=== PATIENT | female | born 1985 | race Caucasian/White ===

== ENCOUNTER 2017-08-23 06:22 | Observation (INO) ==
[2017-08-23] MEDS ORDERED: Ondansetron 4 MG/2 ML VIAL IVP ONE (06:46)
[2017-08-23] MEDS ORDERED: 0.9 % Sodium Chloride 1,000 ML IVC ONE ×2 (06:46→08:10)
[2017-08-23] MEDS ORDERED: Ketorolac 30 MG/ML VIAL IVP ONE (06:46)
--- NOTE | 2017-08-23 06:52 | Emergency Department Note ---
Disposition Clinical Impression: Intractable abdominal pain, Kidney stone Disposition: Admitted As Inpatient Condition: Fair General Adult HPI - General Chief complaint: ED Abdominal Pain Stated complaint: left flank pain Time Seen by Provider: 08/23/17 06:32 Source: patient Mode of arrival: ambulatory Limitations: no limitations Nursing Notes Reviewed: Yes Vital Signs Reviewed: Yes - History of Present Illness HPI Narrative: 31 year old female with history of kidney stone presents with left flank pain. Pt reported sudden sharp pain which woke her up around 2 am this morning (4 hours ago). It associated with some nausea and dysuria. No vomiting. No hematuria. Pt reported mild decreasing urine out put since yesterday. Pt had abdomen CT on 08/02 which indicated a 4mm stone in left distal ureteral. Pt was discharged home with Flomax. Pt denied chill and fever. History of cholecystectomy. Onset (ago): hour(s) (4) Location: abdomen, left Radiation: flank Pain Severity: severe Pain Scale: 10 Quality: sharp Consistency: constant - Related Data Home Medications Medication Instructions Recorded Confirmed Ibuprofen [Ibuprofen] 800 mg PO Q8H PRN 08/23/17 08/23/17 Allergies Allergy/AdvReac Type Severity Reaction Status Date / Time acetaminophen [From Vicodin] AdvReac Vomiting Verified 08/02/17 09:44 hydrocodone [From Vicodin] AdvReac Vomiting Verified 08/02/17 09:44 Constitutional: Denies: fever, chills, weakness Eyes: Denies: eye pain, eye discharge, vision change ENT ED: Denies: ear pain, throat pain, dental pain Cardiovascular: Denies: chest pain, palpitations, dyspnea on exertion Respiratory: Denies: cough, dyspnea, wheezes Gastrointestinal: Reports: abdominal pain, nausea. Denies: vomiting, diarrhea Genitourinary: Denies: urgency, dysuria, frequency, hematuria Musculoskeletal: Denies: back pain, neck pain, joint swelling Integumentary: Denies: rash, abrasion, lesions, change in hair/nails Neurological: Denies: headache, weakness, numbness Psychiatric: Denies: anxiety, depression, suicidal thoughts Endocrine: Denies: fatigue, heat or cold intolerance Hematological/Lymphatic: Denies: easy bleeding, easy bruising Allergic/Immunologic: Denies: facial swelling, urticaria, itchy eyes Past Medical History - Past Medical History Medical history: Reports: no medical history Surgical history: Reports: cholecystectomy Psychiatric history: Reports: no psych history 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 Absent: scleral icterus, conjunctival injection - ENT ENT exam: normal exam - Neck Neck exam: Present: normal inspection, full ROM, trachea midline. Absent: tenderness - Chest Chest inspection: Present: normal inspection, symmetric chest wall rise. Absent : tenderness - Respiratory Respiratory exam: Present: normal lung sounds bilaterally. Absent: respiratory distress, wheezes - Cardiovascular Cardiovascular exam: Present: regular rate, normal rhythm - Abdominal Exam Abdominal exam: Present: soft, tenderness Abdominal tenderness: Present: LUQ - Extremities Exam Extremities exam: Present: normal inspection, full ROM. Absent: tenderness - Back Exam Back exam: Present: normal inspection, full ROM, CVA tenderness (L) - Neurological Exam Neurological exam: Present: alert, oriented X3 - Psychiatric Psychiatric exam: Present: normal affect, normal mood - Skin Skin exam: Present: warm, dry, intact Course Vital Signs Temperature 97.9 F 08/23/17 06:25 Pulse Rate 89 08/23/17 06:25 Respiratory Rate 20 08/23/17 06:25 Blood Pressure 131/94 08/23/17 06:25 O2 Sat by Pulse Oximetry 100 08/23/17 06:25 Temperature 97.8 F 08/23/17 13:11 Pulse Rate 74 08/23/17 13:11 Respiratory Rate 15 08/23/17 13:11 Blood Pressure 121/78 08/23/17 13:11 O2 Sat by Pulse Oximetry 96 08/23/17 13:11 Oxygen Delivery Oxygen Delivery Room Air Medical Decision Making - [facility] Narrative Medical decision making narrative: 31 year old female with history of kidney stone presents with sudden onset left flank pain associate with nausea, dysuria and mild decreasing urine out put since last night. Physical exam indicated LUQ tender and left CVA tender. Impression: flank pain (colic pain VS. abdominal pain), will order labs and UA. symptoms control and hydration. Pt reported intractable pain with toradol and oxycodone. Abd ct ordered. 11:00 CT report : 5mm stone on left UVJ, moderate obstruction, Urology paged 11:10 spoke to Urology James Martin, admit pt to Urology service, NPO now. - Lab Data Lab results reviewed: Yes I reviewed the patient's lab results. Result diagrams: 08/23/17 06:48 08/23/17 06:48 Lab Results 08/23/17 08/23/17 08/23/17 Range/Units 06:41 06:41 06:48 WBC 13.0 H (4.3-11.1) K/mcL RBC 4.82 (3.82-4.97) M/mcL Hgb 14.7 (11.5-15.4) g/dL Hct 43.8 (35.3-44.9) % MCV 90.9 (83.0-100.0) fL MCH 30.5 (28.0-33.3) pg MCHC 33.6 (31.6-35.5) g/dL RDW 12.3 (11.5-14.5) % Plt Count 220 (140-400) K/mcL MPV 13.3 H (9.4-12.4) fL Immature Gran % 0.3 (0-4) % Seg Neutrophils % 68.0 % Lymphocytes % 20.5 % Monocytes % 6.8 % Eosinophils % 3.9 % Basophils % 0.5 % Neutrophils # 8.8 (1.6-8.9) K/mcL Lymphocytes # 2.7 (0.6-4.6) K/mcL Monocytes # 0.9 (0.0-1.3) K/mcL Eosinophils # 0.5 (0.0-0.6) K/mcL Basophils # 0.1 (0.0-0.2) K/mcL Sodium (136-145) mEq/L Potassium (3.5-5.1) mEq/L Chloride (98-107) mEq/L Carbon Dioxide (23-29) mEq/L BUN (6-20) mg/dL Creatinine (0.60-1.20) mg/dL Est GFR ( Amer) (> 60) Est GFR (Non-Af Amer) (> 60) BUN/Creatinine Ratio (6-26) Glucose (70-105) mg/dL Calculated Osmolality (280-300) Calcium (8.6-10.3) mg/dL Total Bilirubin (0.3-1.0) mg/dL AST (13-39) Units/L ALT (7-52) Units/L Alkaline Phosphatase (34-104) Units/L Serum Total Protein (6.4-8.9) g/dL Albumin (3.5-5.7) g/dL Globulin (2.4-3.5) g/dL Albumin/Globulin Ratio (1.1-2.2) Lipase (11-82) Units/L Urine Color Dark Yellow (Yellow) Urine Clarity Cloudy A (Clear) Urine pH 5.5 (5.0-8.0) pH Units Ur Specific [place] 1.028 H (1.010-1.025) Urine Protein Trace (Neg-Trace) mg/dL Urine Glucose (UA) Normal (Normal) mg/dL Urine Ketones Negative (Negative) mg/dL Urine Blood Large H (Negative) Urine Nitrite Negative (Negative) Urine Bilirubin Small H (Negative) Urine Urobilinogen Normal (Normal) mg/dL Ur Leukocyte Esterase Negative (Negative) Urine Microscopic RBC TNTC H (0-3) per hpf Urine Microscopic WBC 5-15 H (0-3) per hpf Ur Squamous Epith Cells Many H (None-Few) per lpf Urine Bacteria Many H (None-Few) per hpf Hyaline Casts None Seen (None-Few) per lpf Ur Culture Indicated? NO (NO) Urine Test (Negative) Urine Opiates Screen Negative (Uyzcne=559) ng/mL Ur Barbiturates Screen Negative (Vscfxd=808) ng/mL Ur Phencyclidine Scrn Negative (Cutoff=25) ng/mL Ur Amphetamines Screen Negative (Jcyiix=7542) ng/mL U Benzodiazepines Scrn Negative (Ytauex=439) ng/mL Urine Cocaine Screen Negative (Cutoff= 300) ng/mL U Marijuana (THC) Screen Negative (Cutoff = 50) ng/mL 08/23/17 08/23/17 Range/Units 06:48 07:35 WBC (4.3-11.1) K/mcL RBC (3.82-4.97) M/mcL Hgb (11.5-15.4) g/dL Hct (35.3-44.9) % MCV (83.0-100.0) fL MCH (28.0-33.3) pg MCHC (31.6-35.5) g/dL RDW (11.5-14.5) % Plt Count (140-400) K/mcL MPV (9.4-12.4) fL Immature Gran % (0-4) % Seg Neutrophils % % Lymphocytes % % Monocytes % % Eosinophils % % Basophils % % Neutrophils # (1.6-8.9) K/mcL Lymphocytes # (0.6-4.6) K/mcL Monocytes # (0.0-1.3) K/mcL Eosinophils # (0.0-0.6) K/mcL Basophils # (0.0-0.2) K/mcL Sodium 137 (136-145) mEq/L Potassium 3.5 (3.5-5.1) mEq/L Chloride 106 (98-107) mEq/L Carbon Dioxide 23 (23-29) mEq/L BUN 10 (6-20) mg/dL Creatinine 0.78 (0.60-1.20) mg/dL Est GFR ( Amer) > 60 (> 60) Est GFR (Non-Af Amer) > 60 (> 60) BUN/Creatinine Ratio 13 (6-26) Glucose 98 (70-105) mg/dL Calculated Osmolality 283 (280-300) Calcium 9.2 (8.6-10.3) mg/dL Total Bilirubin 0.5 (0.3-1.0) mg/dL AST 20 (13-39) Units/L ALT 31 (7-52) Units/L Alkaline Phosphatase 61 (34-104) Units/L Serum Total Protein 7.3 (6.4-8.9) g/dL Albumin 4.3 (3.5-5.7) g/dL Globulin 3.0 (2.4-3.5) g/dL Albumin/Globulin Ratio 1.4 (1.1-2.2) Lipase 16 (11-82) Units/L Urine Color (Yellow) Urine Clarity (Clear) Urine pH (5.0-8.0) pH Units Ur Specific [place] (1.010-1.025) Urine Protein (Neg-Trace) mg/dL Urine Glucose (UA) (Normal) mg/dL Urine Ketones (Negative) mg/dL Urine Blood (Negative) Urine Nitrite (Negative) Urine Bilirubin (Negative) Urine Urobilinogen (Normal) mg/dL Ur Leukocyte Esterase (Negative) Urine Microscopic RBC (0-3) per hpf Urine Microscopic WBC (0-3) per hpf Ur Squamous Epith Cells (None-Few) per lpf Urine Bacteria (None-Few) per hpf Hyaline Casts (None-Few) per lpf Ur Culture Indicated? (NO) Urine Test Negative (Negative) Urine Opiates Screen (Cawmpv=812) ng/mL Ur Barbiturates Screen (Rxshid=377) ng/mL Ur Phencyclidine Scrn (Cutoff=25) ng/mL Ur Amphetamines Screen (Oivfzt=0172) ng/mL U Benzodiazepines Scrn (Lpclbg=869) ng/mL Urine Cocaine Screen (Cutoff= 300) ng/mL U Marijuana (THC) Screen (Cutoff = 50) ng/mL - Radiology Data Radiology results reviewed: Yes I reviewed the patient's radiology results. Attestation Statement - Attestation Attestation: I have personally performed a face to face evaluation on this patient. I have reviewed and agree with the care plan. History and Exam by me shows: Uncomfortable appearing female. No fever, no vomiting, UA contaminated, do not suspect infection. Stone now at UVJ, has moved a couple of cm over the course of 3-4 weeks. Admit for urologic intervention, Dr. Iain barajas.
[2017-08-23 07:14] LABS: Basophils # 0.1 K/mcL (0.0-0.2); Basophils % 0.5 %; Eosinophils # 0.5 K/mcL (0.0-0.6); Eosinophils % 3.9 %; Hematocrit 43.8 % (35.3-44.9); Hemoglobin 14.7 g/dL (11.5-15.4); Immature Granulocytes % 0.3 % (0-4); Lymphocytes # 2.7 K/mcL (0.6-4.6); Lymphocytes % 20.5 %; Mean Corpuscular HGB Conc 33.6 g/dL (31.6-35.5); Mean Corpuscular Hemoglobin 30.5 pg (28.0-33.3); Mean Corpuscular Volume 90.9 fL (83.0-100.0); Mean Platelet Volume 13.3 fL (9.4-12.4); Monocytes # 0.9 K/mcL (0.0-1.3); Monocytes % 6.8 %; Neutrophils # 8.8 K/mcL (1.6-8.9); Platelet Count 220 K/mcL (140-400); Red Blood Count 4.82 M/mcL (3.82-4.97); Red Cell Distribution Width 12.3 % (11.5-14.5)
[2017-08-23 07:34] LABS: Alanine Aminotransferase 31 Units/L (7-52); Albumin 4.3 g/dL (3.5-5.7); Albumin/Globulin Ratio 1.4 (1.1-2.2); Alkaline Phosphatase 61 Units/L (34-104); Aspartate Amino Transferase 20 Units/L (13-39); BUN/Creatinine Ratio 13 (6-26); Bilirubin,Total 0.5 mg/dL (0.3-1.0); Blood Urea Nitrogen 10 mg/dL (6-20); Calcium 9.2 mg/dL (8.6-10.3); Carbon Dioxide 23 mEq/L (23-29); Chloride 106 mEq/L (98-107); Glucose 98 mg/dL (70-105); Lipase 16 Units/L (11-82); Osmolality,Calculated 283 (280-300); Potassium 3.5 mEq/L (3.5-5.1); Sodium 137 mEq/L (136-145); Total Protein 7.3 g/dL (6.4-8.9); eGFR For African Americans > 60 (> 60); eGFR For Non-African Americans > 60 (> 60)
[2017-08-23 07:38] LABS: Bilirubin,Urine Small (Negative); Blood,Urine Large (Negative); Clarity,Urine Cloudy (Clear); Color,Urine Dark Yellow (Yellow); Glucose,Urine (UA) Normal (Normal); Ketones,Urine Negative (Negative); Leukocyte Esterase,Urine Negative (Negative); Nitrite,Urine Negative (Negative); PH,Urine 5.5 pH Units (5.0-8.0); Protein,Urine Trace mg/dL (Neg-Trace); Specific Gravity,Urine 1.028 (1.010-1.025); Urobilinogen,Urine Normal (Normal)
[2017-08-23 07:39] LABS: Bacteria,Urine Many per hpf (None-Few); RBC,Urine TNTC per hpf (0-3); Squamous Epithelial Cell,Urine Many per lpf (None-Few)
[2017-08-23] MEDS ORDERED: *HR* OxyCODONE/APAP 5/325 TABLET PO ONE (07:45)
[2017-08-23 07:54] LABS: Hyaline Casts,Urine None Seen per lpf (None-Few)
[2017-08-23] MEDS ORDERED: *HR* HYDROmorphone (PF) 1 MG/ML SYRINGE IVP ONE ×3 (08:54→11:21)
[2017-08-23] MEDS ORDERED: Ketamine *HR* 20 MG in 0.9 % Sodium Chloride 100 ML IVPB ONE ×2 (09:05→11:20)
[2017-08-23] MEDS ORDERED: *HR* HYDROmorphone (PF) 1 MG/ML SYRINGE ONE (09:22)
[2017-08-23 09:32] LABS: Amphetamine Screen,Urine Negative ng/mL (Cutoff=1000); Barbiturate Screen,Urine Negative ng/mL (Cutoff=200); Benzodiazepines Screen,Urine Negative ng/mL (Cutoff=200); Cannabinoid Screen,Urine Negative ng/mL (Cutoff = 50); Cocaine Screen,Urine Negative ng/mL (Cutoff= 300); Opiate Screen,Urine Negative ng/mL (Cutoff=300); Phencyclidine Screen,Urine Negative ng/mL (Cutoff=25)
[2017-08-23] MEDS ORDERED: OXYCODONE Oral CONC 10 MG/0.5 ML ORAL.SYG SL PRN ×2 (14:33→22:05)
[2017-08-23] MEDS ORDERED: Ondansetron 4 MG/2 ML VIAL IVP PRN ×2 (14:33→22:05)
[2017-08-23] MEDS ORDERED: Ketorolac 15 MG/ML VIAL IVP PRN ×2 (14:33→22:05)
[2017-08-23] MEDS ORDERED: *HR* Promethazine 25 MG/ML VIAL IVP PRN ×2 (14:33→22:05)
[2017-08-23] MEDS ORDERED: Naloxone 0.4 MG/ML INJ IVP PRN ×2 (14:33→22:05)
[2017-08-23] MEDS ORDERED: 0.9 % Sodium Chloride 1,000 ML IVC SCH (14:45)
[2017-08-23] MEDS ORDERED: CeFAZolin Syr 2,000MG/20 ML 2,000 MG/20 ML SYRINGE IVPB ONE ×2 (16:48→17:45)
--- NOTE | 2017-08-23 16:48 | Urology History & Physical ---
Date of Encounter: 08/23/17 Time of Encounter: 16:45 Assessment and Plan (1) Kidney stone Current Visit: Yes Status: Acute 31-year-old woman with a left distal ureteral stone was admitted for pain control. After discussion she would like to have her stone treated. I recommend proceeding with a left ureteroscopy, laser lithotripsy, and stent placement. She was informed of the risks of the procedure including but not limited to bleeding, infection, injury to other structures, need for further procedures, stent irritation, incomplete fragmentation, ureteral perforation, need for nephrostomy tube, need for open repair, risks unforeseen, and the risk of anesthesia. She is willing to proceed. History of Present Illness Chief complaint: left flank pain HPI: Ms. Martel is a 31 year old female presents with a history of left flank pain. The pain has radiated to her left groin. The pain became more severe this morning. It awoke her from sleep. She says it is sharp. She came to the emergency room. A CT scan was performed which showed a 4 mm distal left ureteral stone. She was admitted for further care. She is having some nausea. She is still having some pain while in the hospital. Past Med Surg Social Fam HX - Past Medical History Medical history: no medical history Psychiatric history: no psych history - Past Surgical History Surgical History: cholecystectomy - Social History Smoking Status: Current every day smoker Packs per day: 0.5 Smokeless Tobacco Status: No Alcohol use: none Drug use: none - Family History Mother Hx Family Genitourinary Disorders: No (No stones) Medications and Allergies Ibuprofen [Ibuprofen] 800 mg PO Q8H PRN 08/23/17 [History] 3 Allergy/AdvReac Type Severity Reaction Status Date / Time acetaminophen [From Vicodin] AdvReac Vomiting Verified 08/02/17 09:44 hydrocodone [From Vicodin] AdvReac Vomiting Verified 08/02/17 09:44 Review of Systems - Constitutional no chills, no fever(s) - EENT Nose, mouth and throat: no dizziness - Cardiovascular no chest pain - Respiratory no dyspnea - Gastrointestinal no nausea, no vomiting - Genitourinary Genitourinary: no flank pain, no hematuria - Musculoskeletal no back pain - Integumentary no erythema, no rash - Neurological no weakness - Psychiatric no suicidal ideation - Hematologic/Lymphatic no easy bleeding - Allergic/Immunologic no wheezing Exam Initial Vital Signs Temp Pulse Resp BP Pulse Ox 97.9 F 89 20 131/94 100 08/23/17 06:25 08/23/17 06:25 08/23/17 06:25 08/23/17 06:25 08/23/17 06:25 - General physical appearance Present: well developed, well nourished, no distress - Eyes Absent: icteric - ENT Present: normal nares - Neck Present: trachea midline - Respiratory Present: normal respiratory effort - Cardiovascular Cardiovascular exam IM: RRR - Abdomen Abdomen: Present: soft - Integumentary Present: no rash - Neurologic Present: normal coordination - Musculoskeletal Present: other (no edema) - Additional Findings Mood and affect - normal, pleasant. Urology Results - Labs 08/23/17 06:48 08/23/17 06:48 Abnormal lab results WBC 13.0 K/mcL (4.3-11.1) H 08/23/17 06:48 MPV 13.3 fL (9.4-12.4) H 08/23/17 06:48 Urine Clarity Cloudy (Clear) A 08/23/17 06:41 Ur Specific [place] 1.028 (1.010-1.025) H 08/23/17 06:41 Urine Blood Large (Negative) H 08/23/17 06:41 Urine Bilirubin Small (Negative) H 08/23/17 06:41 Urine Microscopic RBC TNTC per hpf (0-3) H 08/23/17 06:41 Urine Microscopic WBC 5-15 per hpf (0-3) H 08/23/17 06:41 Ur Squamous Epith Cells Many per lpf (None-Few) H 08/23/17 06:41 Urine Bacteria Many per hpf (None-Few) H 08/23/17 06:41 All other labs normal. - Imaging CT scan - abdomen: report reviewed, image reviewed CT scan - pelvis: report reviewed, image reviewed
[2017-08-23] MEDS ORDERED: Albuterol 2.5 MG/3 ML NEBULIZER IH ONE (17:35)
--- NOTE | 2017-08-23 17:39 | Anesthesia Evaluation PreOp ---
Date of Encounter: 08/23/17 Time of Encounter: 17:35 - Past History Planned Operation: L ureteroscopy with laser poss stent placement Cardiac History: Denies any Significant Hx Pulmonary History: Smoker SEARCH OPTIMIZATION ANALYST History: Denies Any Significant HX Other Medical History: Denies Any Significant HX Anesthesia History: No Prior Anesthetic Complications, Past Anesthesia ( cholecystectomy) Alcohol Use: none Drug use: none Medications and Allergies Ibuprofen [Ibuprofen] 800 mg PO Q8H PRN 08/23/17 [History] 3 Allergy/AdvReac Type Severity Reaction Status Date / Time acetaminophen [From Vicodin] AdvReac Vomiting Verified 08/02/17 09:44 hydrocodone [From Vicodin] AdvReac Vomiting Verified 08/02/17 09:44 - Meds/Allergy Pre-op Review Medications Reviewed: Yes Allergies Reviewed: Yes Beta Blockers on Current Med List: No Anesthesia Results - Labs 08/23/17 06:48 08/23/17 06:48 - Imaging EKG: report reviewed (nterpretive Statements SINUS RHYTHM LEFT ATRIAL ENLARGEMENT [-0.15mV P WAVE IN V1/V2] POSSIBLE RIGHT VENTRICULAR CONDUCTION DELAY [RSR (QR) IN V1/V2] Electronically Signed On 04-11-2017 17:38:45 EDT by Fredrick Everett DO) Anesthesia Exam Vital Signs/O2 Sat, Most Current Temp Pulse Resp BP Pulse Ox 97.8 F 74 15 121/78 96 08/23/17 13:11 08/23/17 13:11 08/23/17 13:11 08/23/17 13:11 08/23/17 13:11 Height: 1.63m Weight: 101kg NPO (# of Hours): >8 - HEENT Pupil (Motor): Pupils equal, EOMI Mallampati: II Teeth: Prosthesis (upper partial) - SEARCH OPTIMIZATION ANALYST LOC: Oriented SEARCH OPTIMIZATION ANALYST Motor: Normal RUE, Normal LUE, Normal RLE, Normal LLE, Normal Face SEARCH OPTIMIZATION ANALYST Sensory: Normal: RUE, LUE, RLE, LLE, Face - Cardiac Rhythm: Regular - Pulmonary Breath Sounds: bilateral Clear Respiratory Effort: Symmetrical Anesthesia Assess/Plan ASA Score: 2 Modified Lindsay Scale for Level of Consciousness: Cooperative, oriented, and tranquil Anesthetic Plan: General Monitoring Plan: Standard Monitors Recovery Plan: PACU
--- NOTE | 2017-08-23 20:03 | Operative Note ---
Date of procedure: 08/23/17 Pre-op diagnosis: Left ureteral stone Post-op diagnosis: same Procedure: Left ureteroscopy, laser lithotripsy, basket stone extraction, and left ureteral stent placement. Implants: 6-[place]uv[place] by 24 cm double-J stent. Complications: None Anesthesia: NUNOA Surgeon: James Gann Was there an teachers assistant present: No Estimated blood loss (cc): 1 Specimen: left ureteral stone Condition: stable Disposition: PACU Procedure in Detail: Indications: Phill is a 31-year-old female who presents with left flank pain. A CT scan showed a distal left ureteral stone. She was admitted to the hospital and elected to have the stone removed. She elected to undergo a left ureteroscopy, laser lithotripsy, and stent placement. She was aware of the risks of the procedure including but not limited to bleeding, infection, injury to other structures, need for further procedures, need for stent, stent irritation, incomplete treatment, and the risk of anesthesia. She is willing to proceed. Procedure: After informed consent was obtained the patient was brought back to the operating room and placed in supine position. A time out was performed. General anesthesia was administered and an LMA was placed. She was then placed in the lithotomy position. She was prepped and draped in the usual sterile fashion. Cystoscopy was performed. The anterior urethra was normal. There was no evidence of bladder tumors. The ureteral orifices were in the normal orthotopic position. There was no duplication of the ureteral orifices. With an open ended catheter, the Zip wire was placed in the left ureteral orifice, and it was brought into the kidney under fluoroscopic guidance. I then advanced the semirigid ureteroscope into the ureter. The stone was fragmented using the 365 micron fiber. The stone fragments were then basket extracted. A 6 [place] by 24cm JJ stent was then placed with good curl seen in the kidney and the bladder. The dangle string was left intact and tucked into the vagina to remove the stent at a later date. The patient was then awakened from general anesthesia and brought to recovery room in good condition. All sponge, needle, and instrument counts were correct
--- NOTE | 2017-08-23 20:06 | Discharge Summary ---
Date of Encounter: 08/24/17 Time of Encounter: 20:04 - Discharge Diagnosis (1) Kidney stone Priority: Primary Status: Acute - Hospital Course Hospital course: Ms. Martel is a 31 year old female presented with left flank pain. A CT scan showed a distal left ureteral stone. On 08/23/2017 she underwent a left ureteroscopy, laser lithotripsy, stent placement. She did well to surgery and was discharged home later on 08/24/2017. - Time Spent with Patient Total time spent providing and/or coordinating discharge services: Less than 30 minutes - Discharge Medications Prescriptions: OxyCODONE Immed Rel [Roxicodone 5 MG] 5 mg PO Q4HR PRN 6 Days #20 tablet PRN Reason: Pain Docusate [Colace] 100 mg PO BID #60 capsule Phenazopyridine HCl [Pyridium] 200 mg PO TIDAC #14 tab Home Medications: Docusate [Colace] 100 mg PO BID #60 capsule 08/23/17 [Rx] Ibuprofen 800 mg PO Q8H PRN 08/23/17 [History] OxyCODONE Immed Rel [Roxicodone 5 MG] 5 mg PO Q4HR PRN 6 Days #20 tablet [Rx] Phenazopyridine HCl [Pyridium] 200 mg PO TIDAC #14 tab 08/23/17 [Rx] Allergies/Adverse Reactions: 3 Allergy/AdvReac Type Severity Reaction Status Date / Time acetaminophen [From Vicodin] AdvReac Vomiting Verified 08/02/17 09:44 hydrocodone [From Vicodin] AdvReac Vomiting Verified 08/02/17 09:44 Date of admission: 08/23/17 11:24 Primary care physician: Billie Molina MD Discharging clinician: James Gann Anticipated date of discharge: 08/23/17 Exam Initial Vital Signs Temp Pulse Resp BP Pulse Ox 97.9 F 89 20 131/94 100 08/23/17 06:25 08/23/17 06:25 08/23/17 06:25 08/23/17 06:25 08/23/17 06:25 - General physical appearance Present: well developed, well nourished, no distress - Eyes Absent: icteric - ENT Present: normal nares - Neck Present: trachea midline - Respiratory Present: normal respiratory effort - Cardiovascular Cardiovascular exam IM: RRR - Abdomen Abdomen: Present: soft - Patient Status Disposition: Home, Self-Care Condition: Fair Functional capacity at discharge: independent ambulation Overall status at discharge: patient is progressing back to baseline - Discharge Instructions Follow Up With: James Gann MD [Partnered Physician] - (4 weeks with [facility]) Additional Instructions: 1. The patient can remove her stent in 3 days by pulling on the string. 2. She should expect to feel flank pain with voiding. 3. The patient should call for any fevers, chills, nausea, emesis, or uncontrolled pain. 4. Please provide a work excuse if necessary for up to 1 week off. - Diet and Activity Activity: increase activity as tolerated Diet: advance to your usual diet
[2017-08-23] MEDS ORDERED: *HR* Midazolam HCl 2 MG/2 ML VIAL ONE (20:25)
[2017-08-23] MEDS ORDERED: *HR* FentaNYL (PF) 100 MCG/2 ML VIAL ONE (20:26)
[2017-08-23] MEDS ORDERED: *HR* Propofol 200 MG/20 ML VIAL IVP ONE (20:26)
[2017-08-23] MEDS ORDERED: Lidocaine -MPF 2% 2 ML VIAL ONE (20:26)
[2017-08-23] MEDS ORDERED: Acetaminophen IV 1,000 MG/100 ML INFUS..BTL ONE (20:33)
[2017-08-23] MEDS ORDERED: Metoclopramide 10 MG/2 ML VIAL ONE (20:53)
[2017-08-23] MEDS ORDERED: Famotidine 20 MG/2 ML VIAL ONE (20:54)
[2017-08-23] MEDS ORDERED: Ondansetron 4 MG/2 ML VIAL ONE (21:28)
[2017-08-23] MEDS ORDERED: Dexamethasone 4 MG/ML VIAL ONE (21:28)
--- NOTE | 2017-08-23 22:33 | Anesthesia Evaluation Post Op ---
Date of Encounter: 08/23/17 Time of Encounter: 22:05 - Vital Signs Vital Signs: Vital Signs/O2 Sat/Glucose, Most Current Temp Pulse Resp BP Pulse Ox 08/23/17 22:10 69 14 121/82 92 08/23/17 22:00 75 14 129/95 93 08/23/17 21:50 97.6 F 90 14 145/107 99 - Lungs Lungs: Clear Ascult./Percussion - Airway Airway: Non-obstructed - Cardiovascular Regular Rate - Mental Status Mental Status: Asleep with brisk response to light stimulation - Pain Pain Scale: 1 Pain Scale used: Spaulding-Saucedo (Faces) (1) - Nausea Vomiting Nausea Vomiting: Not Present - Hydration Hydration: Ice chips, Has not voided - Discharge PostOp Status: Transfer Patient to floor Anes Supervising Prov Stmt: Pt VSS and has met criteria for discharge to floor - MD Jacey
[2017-08-23] MEDS: *HR* OxyCODONE/APAP 5/325 TABLET PO PRN (22:51)
[2017-08-23] MEDS: 0.9 % Sodium Chloride 1,000 ML IVC SCH (23:10)
[2017-08-24] MEDS: *HR* OxyCODONE/APAP 5/325 TABLET PO PRN ×2 (02:51→06:45)
[2017-08-24] MEDS: 0.9 % Sodium Chloride 1,000 ML IVC SCH (06:16)
[2017-08-24 06:53] VITALS: BP 113/73
== END 2017-08-24 07:12 | disposition home or self-care (01) ==
LOC: EMEROO 06:22 → 3ANU 06:22
PROVIDERS: ADMIT Urology; ATTEND Internal Medicine